=== PATIENT | male | born 1980 | race Caucasian/White ===

== ENCOUNTER 2023-12-13 08:17 | Emergency (ER) | payer OTHER ==
[~2023-12-13] VITALS: Ht 177.8 cm; Wt 137.0 kg
[2023-12-13 08:24] VITALS: O2SAT 99
[2023-12-13] MEDS: TETRACAINE 0.5% OPHTH DROPS 4ML EACHEYE ONE (08:40)
[2023-12-13 10:34] VITALS: BP 152/87; PULSE 78; RESP 18; TEMP 37.11408; O2SAT 99
== END 2023-12-13 10:53 | disposition home or self-care (01) ==
LOC: ER 08:17
DX: S00.211A Abrasion of right eyelid and periocular area, initial encounter (principal); X58.XXXA Exposure to other specified factors, initial encounter; Y93.89 Activity, other specified; Y92.89 Other specified places as the place of occurrence of the external cause; Y99.8 Other external cause status
CPT/HCPCS: 99282